=== PATIENT | female | born 1945 | race African-American/Black ===

== ENCOUNTER → 2018-07-22 | Outpatient (CLI) | payer OTHER ==
[2015-08-03 23:34] VITALS: BP 226/80
[~2018-07-22] MED LIST: LEVE500T56 PO
--- NOTE | 2018-07-23 16:22 | RAD ---
DATE: 07/22/2018 EXAM: MAMMO MARINO SCREENING BILATERAL HISTORY: Screening COMPARISON: 01/18/2015, 01/06/2014 mammographic exams This study was interpreted with the benefit of Computerized Aided Detection (CAD). Breast Density: SCATTERED The breast parenchyma shows scattered fibroglandular densities. Breast parenchyma level B. FINDINGS: No masses or distortion. No suspicious calcifications. IMPRESSION: No suspicious finding. BI-RADS CATEGORY: 1 NEGATIVE RECOMMENDED FOLLOW-UP: 12M 12 MONTH FOLLOW-UP PQRS compliance statement: Patient information was entered into a reminder system with a target due date in one year for the next mammogram. Mammography is a sensitive method for finding small breast cancers, but it does not detect them all and is not a substitute for careful clinical examination. A negative mammogram does not negate a clinically suspicious finding and should not result in delay in biopsying a clinically suspicious abnormality. "Our facility is accredited by the [employer] Mammography [employer]."
== END | disposition home or self-care (01) ==
LOC: MAMMO 13:45
PROVIDERS: ATTEND Internal Medicine
DX: Z12.31 Encounter for screening mammogram for malignant neoplasm of breast (principal)
CPT/HCPCS: 77063; 77067

== ENCOUNTER → 2019-09-30 | Outpatient (CLI) | payer MEDICARE ==
[2015-08-03 23:34] VITALS: BP 226/80
--- NOTE | 2019-09-30 14:03 | RAD ---
DATE: 09/30/2019 12:39 PM EXAM: MAMMO MARINO SCREENING BILATERAL HISTORY: Screening COMPARISON: 07/22/2018, 01/18/2015, 01/06/2014 and 12/25/2012 TECHNIQUE: Bilateral CC and MLO views of the breasts were performed. Bilateral breast tomosynthesis was performed in CC and MLO projections. Computer-aided detection was utilized. FINDINGS: Breast Density: SCATTERED The breast parenchyma shows scattered fibroglandular densities. Breast parenchyma level B An asymmetry in the lateral middle third right breast is best seen on the CC view on tomographic image 17 of 43 and may have a correlate on the MLO tomographic series and image 14 of 42. Needs additional imaging with a full-field lateral tomographic view, possible right CC spot compression view and targeted ultrasound of the lateral right breast. The left breast is negative. IMPRESSION: Right breast asymmetry, findings for which additional imaging is advised. BI-RADS CATEGORY: 0 INCOMPLETE: NEEDS ADDITIONAL IMAGING EVALUATION AND/OR PRIOR MAMMOGRAMS FOR COMPARISON. RECOMMENDED FOLLOW-UP: ADD ADDITIONAL IMAGING The patient will be contacted to return for additional imaging and a supplemental report will follow. PQRS compliance statement: Patient information was entered into a reminder system with a target due date for the next mammogram. Mammography is a sensitive method for finding small breast cancers, but it does not detect them all and is not a substitute for careful clinical examination. A negative mammogram does not negate a clinically suspicious finding and should not result in delay in biopsying a clinically suspicious abnormality. "Our facility is accredited by the [employer] Mammography [employer]."
== END | disposition home or self-care (01) ==
LOC: MAMMO 12:27
PROVIDERS: ATTEND Internal Medicine
DX: Z12.31 Encounter for screening mammogram for malignant neoplasm of breast (principal); N64.89 Other specified disorders of breast
CPT/HCPCS: 77063; 77067

== ENCOUNTER → 2019-10-06 | Outpatient (CLI) | payer MEDICARE ==
[2015-08-03 23:34] VITALS: BP 226/80
--- NOTE | 2019-10-06 14:18 | RAD ---
DATE: 10/06/2019 1:55 PM EXAM: DIGITAL DIAGNOSTIC RT HISTORY: Screening recall for asymmetry in the lateral right breast COMPARISON: 09/30/2019 ML views of the right breast were performed with 2-D and 3-D technique. A CC spot compression view was also obtained. This study was interpreted with the benefit of Computerized Aided Detection (CAD). FINDINGS: Breast Density: SCATTERED The breast parenchyma shows scattered fibroglandular densities. Breast parenchyma level B The questioned asymmetry did not persist on additional mammographic views. No suspicious masses, microcalcifications or architectural distortion is present to suggest malignancy. IMPRESSION: No mammographic evidence of malignancy. BI-RADS CATEGORY: 1 NEGATIVE RECOMMENDED FOLLOW-UP: 12M 12 MONTH FOLLOW-UP Annual screening mammography is recommended, unless clinically indicated sooner based on symptoms or change in physical exam. PQRS compliance statement: Patient information was entered into a reminder system with a target due date for the next mammogram. Mammography is a sensitive method for finding small breast cancers, but it does not detect them all and is not a substitute for careful clinical examination. A negative mammogram does not negate a clinically suspicious finding and should not result in delay in biopsying a clinically suspicious abnormality. "Our facility is accredited by the [employer] Mammography [employer]."
== END | disposition home or self-care (01) ==
LOC: MAMMO 13:30
PROVIDERS: ATTEND Internal Medicine
DX: R92.2 Inconclusive mammogram (principal)
CPT/HCPCS: 77065

== ENCOUNTER → 2020-10-06 | Outpatient (CLI) | payer MEDICARE ==
[2015-08-03 23:34] VITALS: BP 226/80
--- NOTE | 2020-10-07 17:31 | RAD ---
DATE: 10/06/2020 EXAM: MAMMO MARINO SCREENING BILATERAL HISTORY: Screening COMPARISON: Delay 09/30/2019, 07/22/2018, 01/18/2015, 12/25/2012, 12/22/2011 This study was interpreted with the benefit of Computerized Aided Detection (CAD). Breast Density: SCATTERED The breast parenchyma shows scattered fibroglandular densities. Breast parenchyma level B. FINDINGS: There is a 6 mm focal asymmetry in the left breast around 8-9 o'clock 6 cm posterior to the nipple. There is a calcification adjacent to the focal asymmetry. No other mass, calcifications, or architectural distortion. IMPRESSION: Focal asymmetry in the left breast at approximately 8-9 o'clock, posterior depth. Recommend spot compression CC and MLO views. Ultrasound may also be needed. BI-RADS CATEGORY: 0 INCOMPLETE: NEEDS ADDITIONAL IMAGING EVALUATION AND/OR PRIOR MAMMOGRAMS FOR COMPARISON. RECOMMENDED FOLLOW-UP: ADD ADDITIONAL IMAGING PQRS compliance statement: Patient information was entered into a reminder system with a target due date for the next mammogram. Mammography is a sensitive method for finding small breast cancers, but it does not detect them all and is not a substitute for careful clinical examination. A negative mammogram does not negate a clinically suspicious finding and should not result in delay in biopsying a clinically suspicious abnormality. "Our facility is accredited by the [employer] Mammography Program."
== END ==
LOC: MAMMO 12:44
PROVIDERS: ATTEND Internal Medicine
DX: Z12.31 Encounter for screening mammogram for malignant neoplasm of breast (principal)
CPT/HCPCS: 77063; 77067

== ENCOUNTER → 2020-11-01 | Outpatient (CLI) | payer MEDICARE ==
[2015-08-03 23:34] VITALS: BP 226/80
--- NOTE | 2020-11-01 17:25 | RAD ---
DATE: 11/01/2020 EXAM: DIGITAL DIAGNOSTIC LT, BREAST LEFT HISTORY: Recall from screening mammogram for focal asymmetry in the left breast. COMPARISON: 10/06/2020, 09/30/2019, 07/22/2018, 01/18/2015 This study was interpreted with the benefit of Computerized Aided Detection (CAD). Breast Density: SCATTERED The breast parenchyma shows scattered fibroglandular densities. Breast parenchyma level B. FINDINGS: Mammogram: The 6 mm focal asymmetry in the inner left breast at approximately 9:00, 6 cm posterior to the nipple persists on spot compression cc view but changes configuration on spot compression MLO view suggesting superimposed fibroglandular tissue. Ultrasound: The inner left breast was scanned in the area of concern. There is no cyst or mass seen at 9:00, 6 in meters the nipple. IMPRESSION: No evidence of malignancy. Recommend annual screening mammogram. BI-RADS CATEGORY: 2 BENIGN FINDING(S) RECOMMENDED FOLLOW-UP: 12M 12 MONTH FOLLOW-UP PQRS compliance statement: Patient information was entered into a reminder system with a target due date for the next mammogram. Mammography is a sensitive method for finding small breast cancers, but it does not detect them all and is not a substitute for careful clinical examination. A negative mammogram does not negate a clinically suspicious finding and should not result in delay in biopsying a clinically suspicious abnormality. "Our facility is accredited by the [employer] Mammography Program."
== END ==
LOC: MAMMO 13:13
PROVIDERS: ATTEND Internal Medicine
DX: R92.2 Inconclusive mammogram (principal)
CPT/HCPCS: 76641; 77065